=== PATIENT | male | born 1985 | race African-American/Black ===

== ENCOUNTER 2017-10-07 21:30 | Emergency (ER) | payer SELFPAY ==
--- NOTE | 2017-10-08 01:38 | ER ---
Nurse's Notes [facility] 32 [facility] Sex: Male : 1985 Arrival Date: 10/07/2017 Time: 21:44 Bed 18 Private MD: Diagnosis: Corns and callosities-Right great toe Presentation: 10/07 22:45 Presenting complaint: Patient states: Patient states left big toe is infected and has a ea smell coming from it. Patient reports pain when he puts pressure on foot. Transition of care: patient was not received from another setting of care. Onset of symptoms was October 07, 2017. Risk Assessment: Do you want to hurt yourself or someone else? Patient reports no desire to harm self or others. Care prior to arrival: None. 22:45 Method Of Arrival: Ambulatory ea 22:45 Acuity: SHERLYN 4 ea 10/08 01:16 Initial Sepsis Screen: Does the patient meet any 2 criteria? No. Patient's initial jd3 sepsis screen is negative. Does the patient have a suspected source of infection? No. Patient's initial sepsis screen is negative. Triage Assessment: 10/07 22:52 General: Appears in no apparent distress. Behavior is calm, cooperative, appropriate ea for age. Pain: Denies pain. Derm: callous and sore to bottom right big toe. Historical: - Allergies: 22:49 No Known Allergies; ea - Home Meds: 22:49 None [Active]; ea - PMHx: 22:49 None; ea - PSHx: 22:49 None; ea - Immunization history:: Adult Immunizations up to date. - Social history:: Smoking status: Patient uses tobacco products, chewing tobacco. - Ebola Screening: : No symptoms or risks identified at this time. Screenin/27 01:15 Abuse screen: Denies threats or abuse. Nutritional screening: No deficits noted. jd3 Tuberculosis screening: No symptoms or risk factors identified. Fall Risk None identified. Assessment: 01:00 General: Appears in no apparent distress. uncomfortable, Behavior is calm, cooperative, jd3 appropriate for age, Reports pain when walking. Pain: Denies pain. Neuro: Level of Consciousness is awake, alert, obeys commands, Oriented to person, place, time, situation. Cardiovascular: Heart tones S1 S2 present Capillary refill < 3 seconds Patient's skin is warm and dry. Respiratory: Airway is patent Respiratory effort is even, unlabored, Respiratory pattern is regular, symmetrical, Breath sounds are clear bilaterally. GI: No signs and/or symptoms were reported involving the gastrointestinal system. : No signs and/or symptoms were reported regarding the genitourinary system. EENT: No signs and/or symptoms were reported regarding the EENT system. Derm: Skin is intact, Skin is dry, Skin is normal, Skin temperature is warm Wound noted plantar aspect of right first toe Wound is silver dollar in size, with small amount of exudate noted, red and raised. Musculoskeletal: Circulation, motion, and sensation intact. Range of motion: intact in all extremities. 01:55 Reassessment: Patient appears in no apparent distress at this time. Patient and/or jd3 family updated on plan of care and expected duration. Pain level reassessed. Patient is alert, oriented x 3, equal unlabored respirations, skin warm/dry/pink. pt reported understanding of discharge instructions, even and steady gait upon discharge. Vital Signs: 10/07 22:51 BP 123 / 79; Pulse 61; Resp 18 S; Temp 98(TE); Pulse Ox 98% ; Weight 113.4 kg; Height 6 ea ft. 1 in. (185.42 cm); Pain 0/10; 10/08 00:57 BP 106 / 71; Pulse 80; Resp 16 S; Pulse Ox 97% on R/A; jd3 10/07 22:51 Body Mass Index 32.98 (113.40 kg, 185.42 cm) ea ED Course: 10/07 21:44 Patient arrived in ED. ds1 22:48 Triage completed. ea 10/08 00:40 Rolando Cooper NP is PHCP. pm1 00:40 Ricky Hwang MD is Attending Physician. pm1 00:57 Terry Martínez RN is Primary Nurse. jd3 01:16 Patient has correct armband on for positive identification. Bed in low position. Call jd3 light in reach. Side rails up X 1. Adult w/ patient. 01:16 Patient placed in an exam room. jd3 01:54 No provider procedures requiring assistance completed. Patient did not have IV access jd3 during this emergency room visit. Administered Medications: No medications were administered Outcome: 01:38 Discharge ordered by . pm1 01:55 Discharged to home ambulatory, with family. jd3 01:55 Condition: stable 01:55 Discharge instructions given to patient, family, Instructed on discharge instructions, follow up and referral plans. medication usage, Demonstrated understanding of instructions, follow-up care, medications, Prescriptions given X 1. 01:56 Patient left the ED. jd3 Signatures: Marly Aparicio ds1 Rolando Cooper NP PUBLIC HEALTH MICROBIOLOGIST pm1 Roxane Valadez RN RN ea Davies, Jonathon, RN RN jd3
--- NOTE | 2017-10-08 01:38 | EDPHYS ---
Physician Documentation [facility] Name: [facility] Age: 32 yrs Sex: Male : 1985 Arrival Date: 10/07/2017 Time: 21:44 Bed 18 Private MD: Ricky Hu HPI: 10/09 00:51 This 32 yrs old Black Male presents to ER via Ambulatory with complaints of Right great pm1 Toe Pain. 00:51 Onset: The symptoms/episode began/occurred 4 month(s) ago. Associated signs and pm1 symptoms: Pertinent negatives: fever. Modifying factors: The patient symptoms are alleviated by nothing, the patient symptoms are aggravated by Touching ear. The patient has not experienced similar symptoms in the past. Patient with callous to right great toe for multiple months due to steel toe shoes he uses for work. patient noticed some discharge from his callous 2 days ago. Today the callous has improved. no fevers or swelling. Historical: - Allergies: 10/07 22:49 No Known Allergies; ea - Home Meds: 22:49 None [Active]; ea - PMHx: 22:49 None; ea - PSHx: 22:49 None; ea - Immunization history:: Adult Immunizations up to date. - Social history:: Smoking status: Patient uses tobacco products, chewing tobacco. - Ebola Screening: : No symptoms or risks identified at this time. ROS: 10/09 00:51 Constitutional: Negative for fever, chills, and weight loss, Cardiovascular: Negative pm1 for chest pain, palpitations, and edema, Respiratory: Negative for shortness of breath, cough, wheezing, and pleuritic chest pain, Abdomen/GI: Negative for abdominal pain, nausea, vomiting, diarrhea, and constipation, Back: Negative for injury and pain, MS/Extremity: Negative for injury and deformity. Skin: Positive for Callous right great toe. Exam: 00:51 Constitutional: This is a well developed, well nourished patient who is awake, alert, pm1 and in no acute distress. Head/Face: Normocephalic, atraumatic. Chest/axilla: Normal chest wall appearance and motion. Nontender with no deformity. No lesions are appreciated. Cardiovascular: Regular rate and rhythm with a normal S1 and S2. No gallops, murmurs, or rubs. Normal PMI, no JVD. No pulse deficits. Respiratory: Lungs have equal breath sounds bilaterally, clear to auscultation and percussion. No rales, rhonchi or wheezes noted. No increased work of breathing, no retractions or nasal flaring. Back: No spinal tenderness. No costovertebral tenderness. Full range of motion. 00:51 Skin: Appearance: normal except for affected area, Callous to right great toe on plantar surface. Vital Signs: 10/07 22:51 BP 123 / 79; Pulse 61; Resp 18 S; Temp 98(TE); Pulse Ox 98% ; Weight 113.4 kg; Height 6 ea ft. 1 in. (185.42 cm); Pain 0/10; 10/08 00:57 BP 106 / 71; Pulse 80; Resp 16 S; Pulse Ox 97% on R/A; jd3 10/07 22:51 Body Mass Index 32.98 (113.40 kg, 185.42 cm) ea MDM: 00:41 Patient medically screened. pm1 01:35 Data reviewed: vital signs. Data interpreted: Pulse oximetry: on room air is 97 %. pm1 Interpretation: normal. 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 Administered Medications: No medications were administered Disposition: 10/08/17 01:38 Discharged to Home. Impression: Corns and callosities - Right great toe. - Condition is Stable. - Prescriptions for Bactrim DS 800- 160 mg Oral Tablet - take 1 tablet by ORAL route every 12 hours for 10 days; 20 tablet. - Medication Reconciliation Form, Thank You Letter, Antibiotic Education, Work release form form. - Follow up: Emergency Department; When: As needed; Reason: Worsening of condition. Follow up: Private Physician; When: 2 - 3 days; Reason: Recheck today's complaints, Continuance of care, Re-evaluation by your physician. - Problem is new. - Symptoms have improved. Addendum: 10/10/2017 09:16 Co-signature as Attending Physician, Ricky Hwang MD I agree with the assessment and c mayorga plan of care. Signatures: Ricky Hwang MD MD cha Marinas, Patrick, PARI MUTUEL CLERK PARI MUTUEL CLERK pm1 Roxane Valadez, RN RN ea Terry Martínez RN RN jd3 Corrections: (The following items were deleted from the chart) 10/08 01:56 01:38 10/08/2017 01:38 Discharged to Home. Impression: Corns and callosities - Right jd3 great toe. Condition is Stable. Forms are Medication Reconciliation Form, Thank You Letter, Antibiotic Education, Prescription Opioid Use. Follow up: Emergency Department; When: As needed; Reason: Worsening of condition. Follow up: Private Physician; When: 2 - 3 days; Reason: Recheck today's complaints, Continuance of care, Re-evaluation by your physician. Problem is new. Symptoms have improved. pm1
== END 2017-10-08 01:56 | disposition home or self-care (01) ==
LOC: ER 21:30
DX: L84 Corns and callosities (principal); F17.220 Nicotine dependence, chewing tobacco, uncomplicated
CPT/HCPCS: 99282

== ENCOUNTER 2019-07-24 19:13 | Emergency (ER) | payer OTHER, SELFPAY ==
--- OUTSIDE RECORDS SUMMARY | 2019-07-24 19:15 | XMS REPORT ---
:1985 [facility] Address [address] [place], [place] [address]viv Stover [address] [place] [id number] Care Team Providers Name Role Phone FADIA STRANGE Unavailable Unavailable Problems This patient has no known problems. Allergies, Adverse Reactions, Alerts This patient has no known allergies or adverse reactions. Medications This patient has no known medications. Results Test Description Test Time Test Comments Text Results Atomic Results Result Comments POCT-GLUCOSE METER 2019-06-24 07:27:00 Test Item Value Reference Range Comments POC-GLUCOSE METER (BEAKER) 76 mg/dL 70-110 : TESTED AT [facility] [address] [address] (test ssvy=[id number]) [address] [facility] [facility] [address]: Manugrapher/Biomedical Engineering Director VU=[id number] for CHEN AGUIRRE
--- NOTE | 2019-07-24 21:08 | ER ---
Nurse's Notes [facility] Name: Ruslan Matamoros Age: 34 yrs Sex: Male : 1985 Arrival Date: 07/24/2019 Time: 19:17 Bed 10 Private MD: Diagnosis: Acute bronchitis;Acute frontal sinusitis Presentation: 07/23 19:49 Chief complaint: Patient states: "I've been having this cough and its been giving my aj1 headaches. I took medicine last night and I felt alright this morning and by 3 o'clock it hit hard again" Patient reports that he has had this cough for the past 4 days. Reports subjective fever. Coronavirus screen: The patient has NOT traveled to a country currently being monitored by the CDC within the last 14 days. Ebola Screen: Patient denies travel to an Ebola-affected area in the 21 days before illness onset. Initial Sepsis Screen: Does the patient meet any 2 criteria? No. Patient's initial sepsis screen is negative. Does the patient have a suspected source of infection? Yes: Productive cough/pneumonia. Risk Assessment: Do you want to hurt yourself or someone else? Patient reports no desire to harm self or others. 19:49 Method Of Arrival: Ambulatory aj1 19:49 Acuity: SHERLYN 4 aj1 21:16 Onset of symptoms was July 20, 2019. bb Triage Assessment: 19:51 Headache History: Denies prior headaches. General: Appears in no apparent distress. aj1 comfortable, Behavior is calm, cooperative, appropriate for age. Pain: Complains of pain in forehead and right advent Pain does not radiate. Pain currently is 7 out of 10 on a pain scale. Quality of pain is described as aching, Pain began 4 days ago Also complains of nausea. EENT: Reports nasal congestion nasal discharge. Neuro: Level of Consciousness is awake, alert, obeys commands, Oriented to person, place, time, situation. Cardiovascular: Patient's skin is warm and dry. Respiratory: Airway is patent Respiratory effort is even, unlabored, Respiratory pattern is regular, symmetrical. Historical: - Allergies: 19:51 No Known Allergies; aj1 - Home Meds: 19:51 None [Active]; aj1 - PMHx: 19:51 None; aj1 - PSHx: 19:51 None; aj1 - Immunization history:: Flu vaccine is not up to date. - Social history:: Smoking status: Patient reports use of chewing tobacco. Screenin:13 Abuse screen: Denies threats or abuse. Nutritional screening: No deficits noted. bb Tuberculosis screening: No symptoms or risk factors identified. Fall Risk None identified. Assessment: 21:13 General: Appears in no apparent distress. Behavior is calm, cooperative. Pain: bb Complains of pain in headache. Neuro: Level of Consciousness is awake, alert, obeys commands, Oriented to person, place, time, situation. Cardiovascular: No deficits noted. Respiratory: Airway is patent Respiratory effort is even, unlabored, Respiratory pattern is regular. GI: No signs and/or symptoms were reported involving the gastrointestinal system. Derm: Skin is dry, Skin is normal, Skin temperature is warm. Musculoskeletal: Circulation, motion, and sensation intact. 21:14 Reassessment: Patient is alert, oriented x 3, equal unlabored respirations, skin bb warm/dry/pink. pt verbalized understanding of and agrees to plan of care discharge instructions given pt ambulated with steady gait to exit accompanied by spouse. Vital Signs: 19:49 BP 138 / 84; Pulse 97; Resp 18; Temp 99.2; Pulse Ox 97% on R/A; Weight 108.86 kg (R); aj1 Height 6 ft. 1 in. (185.42 cm) (R); Pain 7/10; 19:49 Body Mass Index 31.66 (108.86 kg, 185.42 cm) aj1 ED Course: 19:17 Patient arrived in ED. jg7 19:51 Triage completed. aj1 19:51 Arm band placed on Patient placed in waiting room, Patient notified of wait time. aj1 20:31 Tyler Salazar FNP-C is PHCP. la1 20:31 Ricky Hwang MD is Attending Physician. la1 20:48 Chest Pa And Lat (2 Views) XRAY In Process Unspecified. EDMS 21:13 Lucy Boyd, DEEPTI is Primary Nurse. bb 21:13 Patient has correct armband on for positive identification. Adult w/ patient. bb 21:13 No provider procedures requiring assistance completed. Patient did not have IV access bb during this emergency room visit. Administered Medications: No medications were administered Outcome: 21:08 Discharge ordered by . la1 21:15 Discharged to home ambulatory, with family. bb 21:15 Condition: stable 21:15 Discharge instructions given to patient, Instructed on discharge instructions, follow up and referral plans. medication usage, Demonstrated understanding of instructions, follow-up care, medications, Prescriptions given X 3. 21:16 Patient left the ED. bb Signatures: Dispatcher [employer] EDMiroslava Lombardo RN RN aj1 Lucy Boyd RN RN bb Tyler Salazar, DRUM STENCILER-C DRUM STENCILER-[facility]1 Cathy Powers
--- NOTE | 2019-07-24 21:08 | EDPHYS ---
Physician Documentation [facility] Name: Ruslan Matamoros Age: 34 yrs Sex: Male : 1985 Arrival Date: 07/24/2019 Time: 19:17 Bed 10 Private MD: ED Physician Ricky Hwang HPI: 07/23 21:03 This 34 yrs old Black Male presents to ER via Ambulatory with complaints of Cough, la1 Headache, Eye Pain. 21:03 The patient or guardian reports cough, that is intermittent. Onset: The la1 symptoms/episode began/occurred 3 week(s) ago. Severity of symptoms: At their worst the symptoms were mild. Modifying factors: The symptoms are alleviated by nothing, the symptoms are aggravated by nothing. Associated signs and symptoms: Pertinent negatives: fever. Historical: - Allergies: 19:51 No Known Allergies; aj1 - Home Meds: 19:51 None [Active]; aj1 - PMHx: 19:51 None; aj1 - PSHx: 19:51 None; aj1 - Immunization history:: Flu vaccine is not up to date. - Social history:: Smoking status: Patient reports use of chewing tobacco. ROS: 21:04 Constitutional: Negative for fever, chills, and weight loss, Eyes: Negative for injury, la1 pain, redness, and discharge, Neck: Negative for injury, pain, and swelling. 21:04 Cardiovascular: Negative for chest pain, palpitations, and edema. 21:04 Abdomen/GI: Negative for abdominal pain, nausea, vomiting, diarrhea, and constipation, Back: Negative for injury and pain, MS/Extremity: Negative for injury and deformity, Neuro: Negative for headache, weakness, numbness, tingling, and seizure. 21:04 ENT: Positive for sinus congestion, sinus pain. 21:04 Respiratory: Positive for cough. Exam: 21:05 Constitutional: This is a well developed, well nourished patient who is awake, alert, la1 and in no acute distress. Head/Face: Normocephalic, atraumatic. Eyes: Pupils equal round and reactive to light, extra-ocular motions intact. Lids and lashes normal. Conjunctiva and sclera are non-icteric and not injected. Cornea within normal limits. Periorbital areas with no swelling, redness, or edema. ENT: Nares patent. No nasal discharge, no septal abnormalities noted. Tympanic membranes are normal and external auditory canals are clear. Oropharynx with no redness, swelling, or masses, exudates, or evidence of obstruction, uvula midline. Mucous membranes moist. Neck: Trachea midline, Supple, full range of motion without nuchal rigidity, or vertebral point tenderness. No Meningismus. Chest/axilla: Normal chest wall appearance and motion. Cardiovascular: Regular rate and rhythm with a normal S1 and S2. Respiratory: Lungs have equal breath sounds bilaterally, clear to auscultation Skin: Warm, dry with normal turgor. MS/ Extremity: Pulses equal, no cyanosis. Neurovascular intact. Full, normal range of motion. Vital Signs: 19:49 BP 138 / 84; Pulse 97; Resp 18; Temp 99.2; Pulse Ox 97% on R/A; Weight 108.86 kg (R); aj1 Height 6 ft. 1 in. (185.42 cm) (R); Pain 7/10; 19:49 Body Mass Index 31.66 (108.86 kg, 185.42 cm) aj1 MDM: 20:39 Patient medically screened. kristin 21:06 Data reviewed: vital signs, nurses notes, lab test result(s), radiologic studies, I la1 have discussed the patient's presentation/case with the attending Emergency Department Physician; and as a result, I will discharge patient. Data interpreted: Pulse oximetry: on room air is 97 %. Interpretation: normal. Counseling: I had a detailed discussion with the patient and/or guardian regarding: the historical points, exam findings, and any diagnostic results supporting the discharge/admit diagnosis, lab results, radiology results, the need for outpatient follow up, a family practitioner, to return to the emergency department if symptoms worsen or persist or if there are any questions or concerns that arise at home. Special discussion: I discussed with the patient/guardian that the patient's current presentation does not indicate dosing of antibiotics. They should follow-up with their primary care provider and return if the symptoms persist or progress. ED course: do not see a focal consolidation on CXR, favor allergies/viral illness. Will place pt on medrol dose pack and have him take antihistamines at home, strict return precautions given. 07/23 19:53 Order name: Flu; Complete Time: 20:36 aj1 03/11 19:53 Order name: Strep; Complete Time: 20:36 [facility] 07/23 19:53 Order name: Chest Pa And Lat (2 Views) XRAY [facility] 07/23 20:32 Order name: Throat Culture EDMS Administered Medications: No medications were administered Disposition: 07/24 07:30 Co-signature as Attending Physician, Ricky Hwang MD I agree with the assessment and kristin plan of care. Disposition: 07/24/19 21:08 Discharged to Home. Impression: Acute bronchitis, Acute frontal sinusitis. - Condition is Stable. - Discharge Instructions: Acute Bronchitis, Adult, Sinusitis, Adult. - Prescriptions for Tessalon Perles 100 mg Oral Capsule - take 1 capsule by ORAL route every 8 hours As needed; 15 capsule. Medrol (Sadi) 4 mg Oral Tablets, Dose Pack - take 1 tablet by ORAL route as directed - follow package instructions; 1 packet. Albuterol Sulfate 90 mcg/actuation - inhale 1-2 puff by INHALATION route every 4-6 hours; 1 Inhaler. - Medication Reconciliation Form, Thank You Letter form. - Follow up: Private Physician; When: 2 - 3 days; Reason: Recheck today's complaints, Re-evaluation by your physician. - Problem is new. - Symptoms have improved. Signatures: Dispatcher [employer] Miroslava Greene RN RN aj1 Ricky Hwang MD MD cha Ballard, Brenda, RN RN bb Attema, Lee, BUDGET TECHNICIAN-C BUDGET TECHNICIAN-Cla1 Corrections: (The following items were deleted from the chart) 07/23 21:16 21:08 07/24/2019 21:08 Discharged to Home. Impression: Acute bronchitis; Acute frontal bb sinusitis. Condition is Stable. Forms are Medication Reconciliation Form, Thank You Letter, Antibiotic Education, Prescription Opioid Use. Follow up: Private Physician; When: 2 - 3 days; Reason: Recheck today's complaints, Re-evaluation by your physician. Problem is new. Symptoms have improved. la1
--- NOTE | 2019-07-24 21:20 | RAD REPORT ---
EXAM DESCRIPTION: Elmer Ball (2 Views)07/24/2019 8:44 pm CLINICAL HISTORY: Cough COMPARISON: None FINDINGS: The lungs appear clear of acute infiltrate. The heart is normal size IMPRESSION: No acute abnormalities displayed
[2019-07-24 21:50] VITALS: BP 138/84; TEMP 99.2; O2SAT 97
== END 2019-07-24 21:16 | disposition home or self-care (01) ==
LOC: ER 19:13
DX: J20.9 Acute bronchitis, unspecified (principal); J01.10 Acute frontal sinusitis, unspecified; Z72.0 Tobacco use
CPT/HCPCS: 71046; 87070; 87081; 87804; 99283